=== PATIENT | male | born 1950 | race Caucasian/White ===

== ENCOUNTER 2016-03-08 18:31 | Emergency (ER) | payer OTHER ==
[~2016-03-08] VITALS: Ht 177.8 cm; Wt 113.6 kg
[~2016-03-08 18:31] MED LIST: ACTOPLUS MET 11 EACH PO; ACTOPLUS MET1 TABLET PO; AMLODIPINE BESY10 MG PO; Actos PO; CEFTIN500 MG PO; CENTRUM SILV1 TABLE1 PO; CIPRO500 MG PO; CLARITIN10 M3 PO; CVS GLUCOSAMIN PO; CVS SPECTRAVIT PO; FLAGYL500 MG PO; FLOMAX0.4 MG PO; FLUOXETINE HCL20 MG PO; FUROSEMIDE20 MG PO; Flomax PO; GABAPENTIN100 MG PO; IRON325 M1 PO; LASIX10 MG PO; LASIX20 MG PO; LIPITOR20 MG PO; LISINOPRIL30 MG PO; METRONIDAZOLE500 MG PO; MIRAPEX0.25 MG PO; MIRAPEX0.5 MG PO; NORCO 5/3251 TABLET PO; NORVASC2.5 MG PO; PANTOPRAZOLE SO40 MG PO; PRAVACHOL20 MG PO; PRAVACHOL40 MG PO; PRINIVIL10 MG PO; Prozac PO; ROCEPHIN1 GM/50 ML IV; SPECTRAVITE SE1 EACH PO; TAMSULOSIN HCL0.4 MG PO; VALIUM5 MG PO; VIAGRA100 MG PO; VITAMIN D2000 UNI1 PO; VOLTAREN-XR100 MG PO; VOLTAREN-XR100 MG PR; Vicodin,Lortab 5/500 PO; ZESTRIL,PRINIVI10 M1 PO; ZOFRAN4 MG PO; ZYRTEC10 MG PO
[2016-03-08 23:02] LABS: HEMATOCRIT 40.3 % (38.0-50.0); MCH 29.5 PG (29.0-34.0); MCHC 33.7 G/DL (30.0-36.0); MCV 87.4 FL (86-99); MEAN PLAT.VOLUME 11.9 uM^3 (9.0-12.4); PLATELET COUNT 196 K/uL (156-360); RBC DIS.WIDTH-CV 12.9 % (11.8-14.6); RBC DIS.WIDTH-SD 40.4 % (39-53); RED BLOOD COUNT 4.61 M/uL (4.00-5.50); WHITE BLOOD COUNT 8.1 K/uL (4.1-10.2)
[2016-03-08] MEDS ORDERED: OXYCODONE HCL5 MG PO (23:08)
[2016-03-08] MEDS ORDERED: VALIUM5 MG PO (23:08)
[2016-03-08 23:12] LABS: CHLORIDE 104 mEq/L (99-109); POTASSIUM 3.9 mEq/L (3.7-5.4); SODIUM 139 mEq/L (136-147)
[2016-03-08 23:14] LABS: GLUCOSE 113 mg/dL (70-99)
[2016-03-08 23:15] LABS: ANION GAP 10 MEQ/L (2-14)
[2016-03-08 23:18] LABS: GFR ESTIMATE (CALCULATED) > 59 mL/min/
[2016-03-08 23:19] LABS: UREA NITROGEN (BUN) 24 mg/dL (9-23)
[2016-03-09] VITALS: BP 120/74
== END 2016-03-09 | disposition home or self-care (01) ==
LOC: EME 18:31
PROVIDERS: Emergency Medicine
DX: S12.9XXD Fracture of neck, unspecified, subsequent encounter (principal); M62.838 Other muscle spasm; M25.571 Pain in right ankle and joints of right foot; Z91.81 History of falling; E11.9 Type 2 diabetes mellitus without complications; I10 Essential (primary) hypertension; Z87.442 Personal history of urinary calculi
CPT/HCPCS: 70450; 72125; 73610; 80048; 85027; 99281; 99285; J1170; J3360

== ENCOUNTER 2016-06-21 17:57 | Emergency (ER) | payer OTHER ==
[~2016-06-21] VITALS: Ht 175.3 cm; Wt 118.0 kg
[~2016-06-21 17:57] MED LIST changes: +OXYCODONE HCL5 MG PO
[2016-06-21 19:24] LABS: MCH 30.2 PG (29.0-34.0); MCHC 34.4 G/DL (30.0-36.0); RBC DIS.WIDTH-CV 12.4 % (11.8-14.6); RED BLOOD COUNT 4.43 M/uL (4.00-5.50); WHITE BLOOD COUNT 8.5 K/uL (4.1-10.2)
[2016-06-21 19:33] LABS: CHLORIDE 106 mEq/L (99-109); POTASSIUM 3.6 mEq/L (3.7-5.4); SODIUM 142 mEq/L (136-147)
[2016-06-21 19:34] LABS: GLUCOSE 96 mg/dL (70-99)
[2016-06-21 19:36] LABS: ANION GAP 12 MEQ/L (2-14)
[2016-06-21 19:38] LABS: GFR ESTIMATE (CALCULATED) > 59 mL/min/
[2016-06-21 19:39] LABS: UREA NITROGEN (BUN) 22 mg/dL (9-23)
[2016-06-21 19:46] LABS: TROP-I INTERPRETATION NEGATIVE; TROPONIN-I 0.01 ng/mL (0.0-0.30)
[2016-06-21 20:08] LABS: HEMATOLOGY COMMENT 1 SN; MEAN PLAT.VOLUME 11.9 uM^3 (9.0-12.4); PLAT.SUFFICIENCY ADEQUATE; PLATELET COUNT 195 K/uL (156-360)
[2016-06-21 20:50] VITALS: BP 160/56
== END 2016-06-21 20:51 | disposition home or self-care (01) ==
LOC: EME 17:57
PROVIDERS: Emergency Medicine
DX: R00.2 Palpitations (principal); I49.3 Ventricular premature depolarization; I10 Essential (primary) hypertension; E11.9 Type 2 diabetes mellitus without complications; Z88.0 Allergy status to penicillin
CPT/HCPCS: 71020; 80048; 84484; 85027; 93005; 99281; 99284

== ENCOUNTER 2016-08-18 07:55 | Inpatient (IN) | payer OTHER ==
[~2016-08-18] VITALS: Ht 175.3 cm; Wt 117.9 kg
[~2016-08-18 07:55] MED LIST changes: +PROZAC20 MG PO
[2016-08-18 08:24] VITALS: BP 149/73
[2016-08-18 08:30] LABS: POINT-OF-CARE METER ID UU14174212
[2016-08-18 14:23] LABS: POINT-OF-CARE METER ID UU13113675
[2016-08-18 15:11] VITALS: BP 158/71
[2016-08-18 19:49] VITALS: BP 149/67
[2016-08-19] VITALS (7 sets, daily range): BP systolic 147–186; BP diastolic 65–99
[2016-08-19 05:33] LABS: HEMATOCRIT 38.2 % (38.0-50.0); MCV 89.7 FL (86-99)
[2016-08-20 07:22] LABS: HEMATOCRIT 37.1 % (38.0-50.0); MCV 86.3 FL (86-99)
[2016-08-20 07:57] VITALS: BP 142/63
[2016-08-20] MEDS ORDERED: BENADRYL25 MG PO (09:22)
[2016-08-20] MEDS ORDERED: TYLENOL REGULA325 MG PO (09:23)
[2016-08-20] MEDS ORDERED: LIDOCAINE700 MG TD (09:24)
[2016-08-20] MEDS ORDERED: SENNA PLUS TAB1 EACH PO (09:24)
[2016-08-20] MEDS ORDERED: OXYCODONE HCL5 MG PO (09:24)
[2016-08-20] MEDS ORDERED: XARELTO10 MG PO (09:24)
[2016-08-20] MEDS ORDERED: CELECOXIB200 MG PO (09:24)
[2016-08-20 11:40] VITALS: BP 132/66
[2016-08-20 15:01] VITALS: BP 130/59
== END 2016-08-20 16:03 | DRG 470 ==
LOC: 3WEST 07:55 → 2SOUTH 07:55 → 3WEST 14:36
PROVIDERS: Orthopaedic Surgery
PROC: 0SRC0J9 Replacement of Right Knee Joint with Synthetic Substitute, Cemented, Open Approach (ICD-10-PCS; principal; 2016-08-18)
DX: M17.11 Unilateral primary osteoarthritis, right knee (principal); I10 Essential (primary) hypertension; E11.9 Type 2 diabetes mellitus without complications; G47.30 Sleep apnea, unspecified; Z98.1 Arthrodesis status
CPT/HCPCS: 82948; 85014; 85018; C1713; J0131; J0330; J0690; J1170; J1885; J2250; J2405; J2795; J3010; J7030; J7050; J7120

== ENCOUNTER 2016-09-03 17:35 | Emergency (ER) | payer OTHER ==
[~2016-09-03] VITALS: Ht 177.8 cm; Wt 115.9 kg
[~2016-09-03 17:35] MED LIST changes: +BENADRYL25 MG PO; +CELECOXIB200 MG PO; +LIDOCAINE700 MG TD; +SENNA PLUS TAB1 EACH PO; +TYLENOL REGULA325 MG PO; +XARELTO10 MG PO
[2016-09-03 18:37] LABS: HEMATOCRIT 40.6 % (38.0-50.0); MCHC 32.8 G/DL (30.0-36.0); MCV 88.5 FL (86-99); PLATELET COUNT 356 K/uL (156-360); RBC DIS.WIDTH-CV 12.5 % (11.8-14.6); RED BLOOD COUNT 4.59 M/uL (4.00-5.50); WHITE BLOOD COUNT 8.4 K/uL (4.1-10.2)
[2016-09-03 18:47] LABS: CHLORIDE 106 mEq/L (99-109); POTASSIUM 5.2 mEq/L (3.7-5.4); SODIUM 143 mEq/L (136-147)
[2016-09-03 18:49] LABS: GLUCOSE 114 mg/dL (70-99)
[2016-09-03 18:50] LABS: ANION GAP 10 MEQ/L (2-14)
[2016-09-03 18:53] LABS: GFR ESTIMATE (CALCULATED) 59 mL/min/
[2016-09-03 18:54] LABS: UREA NITROGEN (BUN) 30 mg/dL (9-23)
[2016-09-03 19:43] LABS: TROP-I INTERPRETATION NEGATIVE; TROPONIN-I < 0.01 ng/mL (0.0-0.30)
[2016-09-03 20:17] LABS: ADD MIUA? YES; BILIRUBIN NEGATIVE; BLOOD SMALL; COLOR YELLOW ((YELLOW)); GLUCOSE (STRIP) NEGATIVE; KETONES NEGATIVE; LEUKOCYTES NEGATIVE; NITRITE NEGATIVE; PROTEIN (STRIP) NEGATIVE; SPECIFIC GRAVITY 1.011 (1.000-1.030); UROBILINOGEN 0.2 MG/DL (0.2-1.0)
[2016-09-03 20:28] LABS: BACTERIA NONE SEEN /HPF; EPITHELIAL CELLS NONE SEEN /HPF; MUCUS TRACE /LPF; RED BLOOD CELLS 0-5 /HPF (0-5); WHITE BLOOD CELLS 0-5 /HPF (0-5)
[2016-09-03] MEDS ORDERED: LOVENOX120 MG/0.8 SC (22:31)
[2016-09-03 23:25] VITALS: BP 152/75
== END 2016-09-03 23:42 | disposition home or self-care (01) ==
LOC: EME 17:35
PROVIDERS: Physician Assistant
DX: I82.401 Acute embolism and thrombosis of unspecified deep veins of right lower extremity (principal); I10 Essential (primary) hypertension; Z98.890 Other specified postprocedural states; Z96.651 Presence of right artificial knee joint; Z79.01 Long term (current) use of anticoagulants; Z87.442 Personal history of urinary calculi; F32.9 Major depressive disorder, single episode, unspecified; Z88.0 Allergy status to penicillin
CPT/HCPCS: 71020; 71275; 80048; 81003; 84484; 85027; 93005; 93971; 99281; 99285; J1650; J7040

== ENCOUNTER → 2017-05-07 | Outpatient (CLI) | payer MEDICARE, OTHER ==
[~2017-05-07] MED LIST changes: +LOVENOX120 MG/0.8 SC
== END | disposition home or self-care (01) ==
LOC: CDC 10:46
DX: Z01.810 Encounter for preprocedural cardiovascular examination (principal); M65.342 Trigger finger, left ring finger
CPT/HCPCS: 93000